=== PATIENT | female | born 1970 | race Asian ===

== ENCOUNTER → 2017-03-05 | Outpatient (CLI) | payer OTHER | LOC: CIMAGING 09:51 | PROVIDERS: ATTEND Nurse Practitioner Family | DX: Z12.31 Encounter for screening mammogram for malignant neoplasm of breast (principal) | CPT/HCPCS: G0202 ==

== ENCOUNTER → 2018-03-20 | Outpatient (CLI) | payer OTHER | LOC: CIMAGING 08:37 | PROVIDERS: ATTEND Nurse Practitioner Family | DX: Z12.31 Encounter for screening mammogram for malignant neoplasm of breast (principal) ==

== ENCOUNTER 2018-03-24 09:00 | Emergency (ER) | payer OTHER ==
[2018-03-24] MEDS ORDERED: ASPIRIN 81 MG CHEWABLE TAB PO ONE (09:18)
--- NOTE | 2018-03-24 09:22 | EDPHY ---
H & P Stated Complaint: LUQ abd pain x3 days,yesterday, left arm and jaw constant Time Seen by Provider: 03/24/18 09:06 HPI/ROS: CHIEF COMPLAINT: Chest pain HISTORY OF PRESENT ILLNESS: Patient is a 48-year-old female who comes to the emergency department complaining of mild left sided chest pain for the last 3 days that yesterday began radiating into her left shoulder and today into her left jaw. She denies any history of cardiac or pulmonary disease. She describes it as a tightness. She describes it as constant. It is not worsened by exertion. No cough or shortness of breath. No increased pain with deep inspiration. No recent travel or leg swelling. She does not smoke or use control pills. She did wake up in the middle of the night last night with diaphoresis. No nausea or vomiting. Severity: Moderate Modifying factors: None REVIEW OF SYSTEMS: Constitutional: denies: chills, fever, recent illness, recent injury EENTM: denies: blurred vision, double vision, nose congestion Respiratory: denies: cough, shortness of breath Cardiac: See HPI denies: irregular heart rate, lightheadedness, palpitations Gastrointestinal/Abdominal: denies: abdominal pain, diarrhea, nausea, vomiting, blood streaked stools Genitourinary: denies: dysuria, frequency, hematuria, pain Musculoskeletal: denies: joint pain, muscle pain Skin: denies: lesions, rash, jaundice, bruising Neurological: denies: headache, numbness, paresthesia, tingling, dizziness, weakness Hematologic/Lymphatic: denies: blood clots, easy bleeding, easy bruising Immunologic/allergic: denies: HIV/AIDS, transplant 10 systems reviewed and negative except as noted EXAM: GENERAL: Well-appearing, well-nourished and in no acute distress. HEAD: Atraumatic, normocephalic. EYES: Pupils equal round and reactive to light, extraocular movements intact, sclera anicteric, conjunctiva are normal. ENT: TMs normal, nares patent, oropharynx clear without exudates. Moist mucous membranes. NECK: Normal range of motion, supple without lymphadenopathy or JVD. LUNGS: Breath sounds clear to auscultation bilaterally and equal. No wheezes rales or rhonchi. HEART: Regular rate and rhythm without murmurs, rubs or gallops. ABDOMEN: Soft, nontender, normoactive bowel sounds. No guarding, no rebound. No masses appreciated. BACK: No CVA tenderness, no spinal tenderness, step-offs or deformities EXTREMITIES: Normal range of motion, no pitting or edema. No clubbing or cyanosis. NEUROLOGICAL: Cranial nerves II through XII grossly intact. Normal speech, normal gait. 5/5 strength, normal movement in all extremities, normal sensation , normal reflexes PSYCH: Normal mood, normal affect. SKIN: Warm, dry, normal turgor, no visible rashes or lesions. Source: Patient, Family Exam Limitations: No limitations - Personal History LMP (Females 10-55): Post Menopausal - Medical/Surgical History Hx Asthma: No Hx Chronic Respiratory Disease: No Hx Diabetes: No Hx Cardiac Disease: No Hx Renal Disease: No Hx Cirrhosis: No Hx Alcoholism: No Hx HIV/AIDS: No Other PMH: Med hx-HTN,insomnia,GERD,type 2 diabetes. Surg-rt knee - Family History Significant Family History: No pertinent family hx - Social History Alcohol Use: Sober Drug Use: None Constitutional: Initial Vital Signs Temperature (C) 36.5 C 03/24/18 09:04 Heart Rate 78 03/24/18 09:04 Respiratory Rate 16 03/24/18 09:04 Blood Pressure 166/104 H 03/24/18 09:04 O2 Sat (%) 96 03/24/18 09:04 O2 Delivery Mode Room Air Allergies/Adverse Reactions: No Known Allergies Allergy (Verified 03/24/18 09:12) Home Medications: Medication Instructions Recorded Amlodipine Besylate 03/24/18 Hydrochlorothiazide [HCTZ (*)] 03/24/18 Omeprazole 03/24/18 clonazePAM [Clonazepam] 03/24/18 metFORMIN HCL [Metformin HCl ER] 250 03/24/18 Medical Decision Making - Diagnostics EKG Interpretation: An EKG obtained and was read and documented in trace view. Please see trace view for full reading and report. Sinus rhythm S1 q.3h T3 present. T-wave inversions anteriorly. Imaging Results: Imaging Impressions Chest X-Ray 03/24/18 09:18 Impression: 1. No active cardiopulmonary disease seen. 2. Arteriosclerotic calcification noted at the aortic arch level. Imaging: Discussed imaging studies w/ house calls nurse practitioner Radiologist ED Course/Re-evaluation: The patient's x-rays, troponin and D-dimer are negative. The patient is feeling better. She does have some abnormalities on her EKG that I am not sure if they are new or old. We discussed options. I offered admission but she declines. It is reassuring that her troponin is negative after 3 days of constant symptoms. I will arrange for her to have follow-up with cardiology in the next 72 hr for stress testing. She and her daughter understand and are happy with this plan. We discussed indications for returning to the emergency department. Differential Diagnosis: Partial list of the Differential diagnosis considered include but were not limited to; chest pain, musculoskeletal pain, cardiac disease, angina, PE , peptic ulcer disease and although unlikely based on the history and physical exam, I also considered pneumonia, pneumothorax, aneurysm, dissection. I discussed these differential diagnoses and the plan with the patient as well as the usual and expected course. The patient understands that the diagnosis is provisional and that in medicine we are not always correct and that further workup is often warranted. Usual and customary warnings were given. All of the patient's questions were answered. The patient was instructed to return to the emergency department should the symptoms at all worsen or return, otherwise to followup with the physician as we discussed. - Data Points Laboratory Results: 03/24/18 03/24/18 09:50 09:45 POC Sodium 137 mEq/L mEq/L (135-145) POC Potassium 3.4 mEq/L mEq/L (3.3-5.0) POC Chloride 99.0 mEq/L mEq/L (97-110) POC Total CO2 26 mEq/L mEq/L (22-31) POC BUN 12 mg/dL mg/dL (7-23) POC Creatinine 0.9 mg/dL mg/dL (0.6-1.0) POC Glucose 133 mg/dL H mg/dL (70-100) POC Calcium 9.7 mg/dL mg/dL (8.5-10.4) POC Total Bilirubin 0.9 mg/dL mg/dL (0.1-1.4) POC AST 27 IU/L IU/L (14-46) POC ALT 17 IU/L IU/L (9-52) POC Alk Phosphatase 94 IU/L IU/L (38-126) POC Troponin I 0.00 ng/mL ng/mL (0.00-0.08) POC Total Protein 7.4 g/dL g/dL (6.3-8.2) POC Albumin 4.0 g/dL g/dL (3.5-5.0) Medications Given: Discontinued Medications Aspirin (Aspirin) 324 mg PO EDNOW ONE Stop: 03/24/18 09:19 Last Admin: 03/24/18 09:23 Dose: 324 mg Point of Care Test Results: CBC CBC Collection Date 03/24/18 CBC Collection Time 09:35 WBC 6.1 RBC 5.24 HGB 15.2 HCT 45.3 PLT 272 Neut # 3.6 Neut 59.7 LYMPH # 1.7 LYMPH 27.7 Other WBC # 0.8 Other WBC 12.6 MCV 86.5 Chemistry 03/24/18 03/24/18 09:50 09:45 POC Sodium 137 mEq/L mEq/L (135-145) POC Potassium 3.4 mEq/L mEq/L (3.3-5.0) POC Chloride 99.0 mEq/L mEq/L (97-110) POC Total CO2 26 mEq/L mEq/L (22-31) POC BUN 12 mg/dL mg/dL (7-23) POC Creatinine 0.9 mg/dL mg/dL (0.6-1.0) POC Glucose 133 mg/dL H mg/dL (70-100) POC Calcium 9.7 mg/dL mg/dL (8.5-10.4) POC Total Bilirubin 0.9 mg/dL mg/dL (0.1-1.4) POC AST 27 IU/L IU/L (14-46) POC ALT 17 IU/L IU/L (9-52) POC Alk Phosphatase 94 IU/L IU/L (38-126) POC Troponin I 0.00 ng/mL ng/mL (0.00-0.08) POC Total Protein 7.4 g/dL g/dL (6.3-8.2) POC Albumin 4.0 g/dL g/dL (3.5-5.0) D-Dimer D-Dimer Collection Date 03/24/18 D-Dimer Collection Time 09:35 D-Dimer (ng/ml) <100 Departure - Departure Disposition: Home, Routine, Self-Care Clinical Impression: Chest pain Qualifiers: Chest pain type: unspecified Qualified Code(s): R07.9 - Chest pain, unspecified Condition: Fair Instructions: Chest Pain (ED) Referrals: BRITTNI MANZANARES NP [Primary Care Provider] - As per Instructions Blanca Xavier MD [Medical Doctor] - 2-3 days, call for appt.
--- NOTE | 2018-03-24 09:24 | CPEKG ---
Test Reason : OPEN Blood Pressure : / mmHG Vent. Rate : 080 BPM Atrial Rate : 080 BPM P-R Int : 152 ms QRS Dur : 075 ms QT Int : 369 ms P-R-T Axes : 014 011 003 degrees QTc Int : 426 ms Sinus rhythm Confirmed by Torito Bray ([id number]) on 03/24/2018 9:24:10 AM Referred By: Confirmed By:Torito Bray
[2018-03-24 10:43] VITALS: BP 130/85
== END 2018-03-24 10:43 | disposition home or self-care (01) ==
LOC: CED 09:00
DX: R94.31 Abnormal electrocardiogram [ECG] [EKG] (principal); I70.0 Atherosclerosis of aorta; I10 Essential (primary) hypertension; E11.9 Type 2 diabetes mellitus without complications; Z79.4 Long term (current) use of insulin
CPT/HCPCS: 71046-PO; 80053-PO; 84484-PO